=== PATIENT | male | born 1990 | race Caucasian/White ===

== ENCOUNTER 2021-04-02 13:15 | Inpatient (IN) | payer SELFPAY ==
[~2021-04-02] VITALS: Ht 175.3 cm; Wt 96.1 kg
[2021-04-02] MEDS ORDERED: NS IV 1000 ML 1,000 ML IV STA (13:33)
[2021-04-02] MEDS ORDERED: LORazepam INJ 2 MG/ML (ATIVAN) VIAL IVP STA (13:33)
[2021-04-02 13:44] LABS: HEMATOCRIT 44 % (40-54); HEMOGLOBIN 15.5 G/DL (13.3-17.7); MEAN CORPUSCULAR HEMOGLOBIN 36 PG (25-34); MEAN CORPUSCULAR HGB CONC 35 G/DL (32-36); MEAN CORPUSCULAR VOLUME 102 FL (80-99); PLATELET COUNT 131 10^3/uL (130-400); WHITE BLOOD COUNT 4.7 10^3/uL (4.3-11.0)
[2021-04-02 13:45] LABS: BASOPHILS % (AUTO) 0 % (0-10); EOSINOPHILS % (AUTO) 0 % (0-10); LYMPHOCYTES # (AUTO) 1.1 X 10^3 (1.0-4.0); LYMPHOCYTES % (AUTO) 23 % (12-44); MEAN PLATELET VOLUME 10.4 FL (7.4-10.4); MONOCYTES # (AUTO) 0.8 X 10^3 (0.0-1.0); MONOCYTES % (AUTO) 17 % (0-12); NEUTROPHILS # (AUTO) 2.8 X 10^3 (1.8-7.8); NEUTROPHILS % (AUTO) 60 % (42-75)
--- NOTE | 2021-04-02 13:55 | ED General ---
General Chief Complaint: General Problems/Pain Stated Complaint: SEIZURE; COVID+ Nursing Triage Note: Patient reports he is COVID positive, states he went to walk-in care today and received a steroid shot. He states they were driving away from the walk-in care facility when he began have extreme muscle cramps in his legs. He states he had facial swelling, difficulty swallowing, and muscle cramps in his arms bilaterally as well. He states he was given an epi-pen at walk-in [facility], then came to the ED by EMS. EMS reports giving the patient 25 mg of IV benadryl. Patient is alert and talking on arrival to the ED, still reporting some muscle cramping. Source of Information: Patient, EMS History of Present Illness Date Seen by Provider: Apr 02, 2021 Time Seen by Provider: 13:15 Initial Comments 30-year-old male brought in by EMS after having a Solu-Medrol shot at the walk- in clinic. He has not been feeling well for the last few days and had gallbladder to be evaluated. He had positive Covid test today at the clinic. The give him a steroid shot to help with his positive Covid diagnosis. He started having muscle cramps and felt like his face and throat were swelling as well as difficulty swallowing after the shot and came back to the walk-in clinic. They gave him an epinephrine injection and 12.1. The EMS gave him additional dose of Benadryl on top of the epinephrine that he had already been given. This was due to continued shaking and contractures in his arms especially as he was getting blood pressure taken. He had denied any vomiting, diarrhea, chest pain, abdominal pain, shortness of breath. He has had some mild cough. He states that he had been a heavy drinker until recently and since Darby Stewart had told him to cut back on the drinking due to fatty liver he has not drink as much. He was still not feeling quite back to normal after all the treatments so EMS transported him to ED for evaluation. Associated Systoms: No Chest Pain; Cough; No Diaphoresis, No Fever/Chills; Malaise; No Nausea/Vomiting, No Rash, No Shortness of Air, No Syncope, No Weakness Allergies and Home Medications Allergies Coded Allergies: No Known Drug Allergies (Unverified , 04/02/21) Patient Home Medication List Home Medication List Reviewed: Yes Review of Systems Review of Systems Constitutional: No fever; malaise, weakness EENTM: nose congestion Respiratory: cough; No short of breath; other (felt like throat was closing off after given Solumedrol injection) Cardiovascular: No chest pain Gastrointestinal: no symptoms reported Genitourinary: no symptoms reported Musculoskeletal: muscle stiffness, muscle cramps Skin: No rash Psychiatric/Neurological: Weakness (generalized) Past Lkpjsmy-Vncxnt-Emralr Hx Patient Social History Tobacco type used: Cigarettes Smoking Status: Current Everyday Smoker Substance use?: No Alcohol Use?: Yes Alcohol Frequency: Couple times a week Pt feels they are or have been: No Past Medical History Surgeries: No Respiratory: No Cardiac: No Neurological: No Genitourinary: No Gastrointestinal: Yes (Fatty Liver and elevated LFTs) Musculoskeletal: No Endocrine: No Cancer: No Psychosocial: No Integumentary: No Physical Exam Vital Signs Vital Signs - First Documented 04/02/21 13:16 Temp 36.4 Pulse 74 Resp 22 B/P (MAP) 155/85 (108) Pulse Ox 99 O2 Delivery Room Air Capillary Refill : Less Than 3 Seconds Height, Weight, BMI Height: '" Weight: lbs. oz. kg; 31.00 BMI Method: General Appearance: No Apparent Distress, WD/WN HEENT: PERRL/EOMI, Pharynx Normal Neck: Full Range of Motion, Normal Inspection, Non Tender, Supple Respiratory: Chest Non Tender, Lungs Clear, Normal Breath Sounds, No Accessory Muscle Use, No Respiratory Distress Cardiovascular: Regular Rate, Rhythm, Normal Peripheral Pulses Gastrointestinal: Normal Bowel Sounds, No Pulsatile Mass, Non Tender, Soft Rectal: Deferred Extremity: Normal Capillary Refill, Normal Inspection, Normal Range of Motion, No Calf Tenderness, No Pedal Edema Neurologic/Psychiatric: Alert, Oriented x3, No Motor/Sensory Deficits, Normal Mood/Affect, marketing strategy analyst II-XII Norm as Tested Skin: Normal Color, Warm/Dry Progress/Results/Core Measures Suspected Sepsis SIRS Temperature: Pulse: 74 Respiratory Rate: 22 Laboratory Tests 04/02/21 13:35: White Blood Count 4.7 Blood Pressure 155 /85 Mean: 108 Laboratory Tests 04/02/21 13:35: Creatinine 0.66, Platelet Count 131, Total Bilirubin 1.2H Results/Orders Lab Results Laboratory Tests Test 04/02/21 13:35 04/02/21 15:25 Range/Units White Blood Count 4.7 4.3-11.0 10^3/uL Red Blood Count 4.28 L 4.35-5.85 10^6/uL Hemoglobin 15.5 13.3-17.7 G/DL Hematocrit 44 40-54 % Mean Corpuscular Volume 102 H 80-99 FL Mean Corpuscular Hemoglobin 36 H 25-34 PG Mean Corpuscular Hemoglobin Concent 35 32-36 G/DL Red Cell Distribution Width 13.6 10.0-14.5 % Platelet Count 131 130-400 10^3/uL Mean Platelet Volume 10.4 7.4-10.4 FL Immature Granulocyte % (Auto) 0 % Neutrophils (%) (Auto) 60 42-75 % Lymphocytes (%) (Auto) 23 12-44 % Monocytes (%) (Auto) 17 H 0-12 % Eosinophils (%) (Auto) 0 0-10 % Basophils (%) (Auto) 0 0-10 % Neutrophils # (Auto) 2.8 1.8-7.8 X 10^3 Lymphocytes # (Auto) 1.1 1.0-4.0 X 10^3 Monocytes # (Auto) 0.8 0.0-1.0 X 10^3 Eosinophils # (Auto) 0.0 0.0-0.3 10^3/uL Basophils # (Auto) 0.0 0.0-0.1 10^3/uL Immature Granulocyte # (Auto) 0.0 0.0-0.1 10^3/uL Sodium Level 136 135-145 MMOL/L Potassium Level 2.9 L 3.6-5.0 MMOL/L Chloride Level 93 L 98-107 MMOL/L Carbon Dioxide Level 22 21-32 MMOL/L Anion Gap 21 H 5-14 MMOL/L Blood Urea Nitrogen 5 L 7-18 MG/DL Creatinine 0.66 0.60-1.30 MG/DL Estimat Glomerular Filtration Rate > 60 BUN/Creatinine Ratio 8 Glucose Level 92 70-105 MG/DL Calcium Level 7.3 L 8.5-10.1 MG/DL Corrected Calcium 7.5 L 8.5-10.1 MG/DL Magnesium Level 1.0 *L 1.6-2.4 MG/DL Total Bilirubin 1.2 H 0.1-1.0 MG/DL Aspartate Amino Transf (AST/SGOT) 156 H 5-34 U/L Alanine Aminotransferase (ALT/SGPT) 291 H 0-55 U/L Alkaline Phosphatase 170 H 40-136 U/L Total Protein 6.5 6.4-8.2 GM/DL Albumin 3.7 3.2-4.5 GM/DL Serum Alcohol < 10 <10 MG/DL Urine Color YELLOW Urine Clarity CLEAR Urine pH 6.5 5-9 Urine Specific [place] 1.010 L 1.016-1.022 Urine Protein NEGATIVE NEGATIVE Urine Glucose (UA) NEGATIVE NEGATIVE Urine Ketones 1+ H NEGATIVE Urine Nitrite NEGATIVE NEGATIVE Urine Bilirubin NEGATIVE NEGATIVE Urine Urobilinogen 0.2 < = 1.0 MG/DL Urine Leukocyte Esterase NEGATIVE NEGATIVE Urine RBC (Auto) 1+ H NEGATIVE Urine RBC 2-5 H /HPF Urine WBC RARE /HPF Urine Squamous Epithelial Cells RARE /HPF Urine Crystals NONE /LPF Urine Bacteria NEGATIVE /HPF Urine Casts NONE /LPF Urine Mucus SMALL H /LPF Urine Culture Indicated NO Urine Opiates Screen NEGATIVE NEGATIVE Urine Oxycodone Screen NEGATIVE NEGATIVE Urine Methadone Screen NEGATIVE NEGATIVE Urine Propoxyphene Screen NEGATIVE NEGATIVE Urine Barbiturates Screen NEGATIVE NEGATIVE Ur Tricyclic Antidepressants Screen NEGATIVE NEGATIVE Urine Phencyclidine Screen NEGATIVE NEGATIVE Urine Amphetamines Screen NEGATIVE NEGATIVE Urine Methamphetamines Screen NEGATIVE NEGATIVE Urine Benzodiazepines Screen NEGATIVE NEGATIVE Urine Cocaine Screen NEGATIVE NEGATIVE Urine Cannabinoids Screen NEGATIVE NEGATIVE My Orders Orders - ARIN TAN MD Comprehensive Metabolic Panel (04/02/21 13:33) Ua Culture If Indicated (04/02/21 13:33) Ed Iv/Invasive Line Start (04/02/21 13:33) Cbc With Automated Diff (04/02/21 13:33) Magnesium (04/02/21 13:33) Drug Screen Stat (Urine) (04/02/21 13:33) Alcohol (04/02/21 13:33) Lorazepam Injection (Ativan Injection) (04/02/21 13:33) Ns Iv 1000 Ml (Sodium Chloride 0.9%) (04/02/21 13:33) Potassium Chloride (Tablet) (K Dur Table (04/02/21 14:04) Magnesium 1 Gm/100 Ml Ivpb (Magnesium Plata (04/02/21 14:04) Ekg Tracing (04/02/21 14:04) Calcium Gluconate 10% Inj (Calcium Glu (04/02/21 14:53) Vital Signs/I&O 04/02/21 13:16 Temp 36.4 Pulse 74 Resp 22 B/P (MAP) 155/85 (108) Pulse Ox 99 O2 Delivery Room Air Capillary Refill : Less Than 3 Seconds Blood Pressure Mean: 108 Progress Note #1: Progress Note check labs and electrolytes for his spasms and reaction to steroid. From description given to EMS he was having facial and throat swelling but he has improved after Epi-pen by Walk-in Clinic and Benadryl by EMS. Progress Note #2: Progress Note Labs show stable CBC without acute significant normality. His chemistry does demonstrate low potassium, magnesium, calcium, and elevated LFTs. He is complaining of continued spasms in his hand especially when the blood pressure cuff is inflating to take his blood pressure. He has no further symptoms for allergic reaction but still having spasms and issues with electrolytes. He has been told he had a fatty liver and elevated LFTs before so this may be cause for his LFTs but no old lab for comparison. ECG added on and shows sinus rhythm with QT prolongation of 431 ms and QTc of 507 ms. d/w Dr. Mar and will admit for supplementation of his electrolytes since they are low enough that he is having spasms and mild prolongation of QT interval. Giving 1 gm of Magnesium here and order calcium gluconate 1 gm. IVF for hydration and repeat Mag and CaGluconate on arrival to [facility]. ECG Initial ECG Impression Date: Apr 02, 2021 Initial ECG Impression Time: 14:46 Initial ECG Rate: 83 Initial ECG Rhythm: Normal Sinus Initial ECG Comparisson: No Previous ECG Available Comment Normal sinus rhythm with a heart rate of 83 bpm. The MO interval [address] elevation. Prolonged QT interval of 431 ms and a QTc interval 507 ms. No prior tracing available for comparison. Departure Communication (Admissions) Time/Spoke to Admitting Phy: 14:32 d/w Dr. Mar for [facility] as pt was following with HUEY Stewart. He has muscle spasms with blood pressure cuff an d low calcium at 7.3 that corrects to 7.5. Magnesium is low at 1. Potassium is low at 2.9. He is Covid 19 Positive and had a reaction to solu-medrol injection but is doing well after that. Will admit for supplementation of his electrolytes since he is having QT prolongation along with the muscle spasms. Negative Chvostek's but Positive Trousseau's sign for his low calcium. Impression Primary Impression: Hypocalcemia Additional Impressions: Hypomagnesemia Hypokalemia Muscle spasm Allergic reaction caused by a drug Qualified Codes: T78.40XA - Allergy, unspecified, initial encounter COVID-19 virus infection Elevated LFTs Disposition: 30 STILL A PATIENT Condition: Stable Admissions Decision to Admit Reason: Admit from ER (General) Decision to Admit/Date: Apr 02, 2021 Time/Decision to Admit Time: 14:32 ARIN TAN MD Apr 02, 2021 13:55
[2021-04-02 13:57] LABS: BUN/CREATININE RATIO 8; CALCIUM 7.3 MG/DL (8.5-10.1); CARBON DIOXIDE 22 MMOL/L (21-32); CHLORIDE 93 MMOL/L (98-107); CREATININE SERUM 0.66 MG/DL (0.60-1.30); GFR ESTIMATED > 60; GLUCOSE 92 MG/DL (70-105); POTASSIUM 2.9 MMOL/L (3.6-5.0); SODIUM 136 MMOL/L (135-145)
[2021-04-02 13:59] LABS: ALANINE AMINOTRANSFERASE 291 U/L (0-55); ALBUMIN 3.7 GM/DL (3.2-4.5); ALKALINE PHOSPHATASE 170 U/L (40-136); BILIRUBIN,TOTAL 1.2 MG/DL (0.1-1.0); TOTAL PROTEIN 6.5 GM/DL (6.4-8.2)
[2021-04-02] MEDS ORDERED: KCL 20 MEQ TAB (K-DUR) PO STA (14:04)
[2021-04-02] MEDS ORDERED: MAGNESIUM 1 GM/100 ML IVPB 100 ML IV STA (14:04)
[2021-04-02] MEDS ORDERED: CALCIUM GLUCONATE 10% INJ 4.65 MEQ in NS (IVPB) 50 ML IV STA (14:53)
[2021-04-02 15:32] LABS: CLARITY,URINE CLEAR; COLOR,URINE YELLOW
[2021-04-02 15:35] LABS: BILIRUBIN,URINE NEGATIVE (NEGATIVE); GLUCOSE, URINE (UA) NEGATIVE (NEGATIVE); KETONES,URINE 1+ (NEGATIVE); LEUKOCYTE ESTERASE ,URINE NEGATIVE (NEGATIVE); NITRITE,URINE NEGATIVE (NEGATIVE); PH,URINE 6.5 (5-9); PROTEIN,URINE NEGATIVE (NEGATIVE)
[2021-04-02 15:41] LABS: AMPHETAMINE SCREEN, URINE NEGATIVE (NEGATIVE); BACTERIA,URINE NEGATIVE /HPF; BARBITURATE SCREEN URINE NEGATIVE (NEGATIVE); BENZODIAZEPINES SCREEN URINE NEGATIVE (NEGATIVE); CANNABINOID SCREEN, URINE NEGATIVE (NEGATIVE); COCAINE SCREEN URINE NEGATIVE (NEGATIVE); METHADONE STAT NEGATIVE (NEGATIVE); METHAMPHETAMINE SCREEN URINE S NEGATIVE (NEGATIVE); OPIATE SCREEN URINE NEGATIVE (NEGATIVE); OXYCODONE STAT NEGATIVE (NEGATIVE); PROPOXYPHENE STAT NEGATIVE (NEGATIVE); SQUAMOUS EPITHELIAL CELL,UR RARE /HPF; TRICYCLIC ANTIDEPRESSANTS SCRE NEGATIVE (NEGATIVE); WBC,URINE RARE /HPF
[2021-04-02] MEDS ORDERED: CALCIUM GLUC. 10% 4.65 MEQ/10 ML VIAL ONE (16:56)
[2021-04-02] MEDS ORDERED: NS IV 1000 ML 1,000 ML ONE (16:56)
[2021-04-02] MEDS ORDERED: MAGNESIUM 1 GM/100 ML IVPB 100 ML IV ONE ×4 (16:57→22:00)
[2021-04-02] MEDS: NS IV 1000 ML 1,000 ML IV SCH (17:12)
[2021-04-02] MEDS ORDERED: KCL 20 MEQ TAB (K-DUR) PO ONE (17:30)
[2021-04-02 17:38] VITALS: BP 111/62
[2021-04-02] MEDS ORDERED: RT-ALBUTEROL INHALER HFA (VENTOLIN HFA) 18 GM IH PRN (17:45)
--- NOTE | 2021-04-02 20:46 | History & Physical ---
HPI History of Present Illness: 30 yo M that presented with electrolyte disturbances after he started not feeling well on Friday. States that he went in to the walkin clinic and was tested for COVID and it was positive today. He received a steroid injection and had a reaction to the steroid injection. He received 2 doses of epi prior to arriving to ER. States that he had a coworker that had not been feeling well and was started on a z-pack last week. Patient has been feeling fatigued but otherwise feeling ok. Started coughing on friday but has not had any troubles breathing. Patient states that he use to be an every day drinker but he has been cutting down. Denies ever having to be in the hospital or having withdraw symptoms. Source: patient Exam Limitations: no limitations Date seen by provider: Apr 02, 2021 Time Seen by Provider: 18:05 Attending Physician Jagjit Mar MD PCP No,Local Physician Consult Date of Admission Apr 02, 2021 at 16:48 Home Medications Home Medications Reviewed patient Home Medication Reconciliation performed by pharmacy medication reconciliations cryptologic technician technical and/or nursing. Patients Allergies have been reviewed. Allergies Coded Allergies: methylprednisolone (Verified Allergy, Unknown, 04/02/21) QCU-Dtkiyb-Vjhnup Hx Patient Social History Living Status: Lives at home with mother Smoking Status: Former Smoker Alcohol Use?: Yes Tobacco type used: Cigarettes Have you traveled recently?: No Past Medical History EtOH use Family Medical History Significant Family History: No Pertinent Family Hx Review of Systems ([facility]) Constitutional: malaise, weakness EENTM: nose congestion; No mouth pain, No nose pain, No throat pain Respiratory: cough; No dyspnea on exertion, No short of breath Cardiovascular: no symptoms reported; No chest pain, No edema, No palpitations Gastrointestinal: no symptoms reported; No abdominal pain, No constipation, No diarrhea, No loss of appetite, No nausea, No vomiting Genitourinary: no symptoms reported; No dysuria, No frequency, No hematuria Musculoskeletal: muscle pain (left hand pain) Skin: no symptoms reported; No lesions, No rash Psychiatric/Neurological: Numbness (left hand) Reviewed Test Results Reviewed Test Results Lab Laboratory Tests Test 04/02/21 13:35 04/02/21 15:25 04/02/21 19:47 Range/Units White Blood Count 4.7 4.3-11.0 10^3/uL Red Blood Count 4.28 L 4.35-5.85 10^6/uL Hemoglobin 15.5 13.3-17.7 G/DL Hematocrit 44 40-54 % Mean Corpuscular Volume 102 H 80-99 FL Mean Corpuscular Hemoglobin 36 H 25-34 PG Mean Corpuscular Hemoglobin Concent 35 32-36 G/DL Red Cell Distribution Width 13.6 10.0-14.5 % Platelet Count 131 130-400 10^3/uL Mean Platelet Volume 10.4 7.4-10.4 FL Immature Granulocyte % (Auto) 0 % Neutrophils (%) (Auto) 60 42-75 % Lymphocytes (%) (Auto) 23 12-44 % Monocytes (%) (Auto) 17 H 0-12 % Eosinophils (%) (Auto) 0 0-10 % Basophils (%) (Auto) 0 0-10 % Neutrophils # (Auto) 2.8 1.8-7.8 X 10^3 Lymphocytes # (Auto) 1.1 1.0-4.0 X 10^3 Monocytes # (Auto) 0.8 0.0-1.0 X 10^3 Eosinophils # (Auto) 0.0 0.0-0.3 10^3/uL Basophils # (Auto) 0.0 0.0-0.1 10^3/uL Immature Granulocyte # (Auto) 0.0 0.0-0.1 10^3/uL Sodium Level 136 135-145 MMOL/L Potassium Level 2.9 L 3.6-5.0 MMOL/L Chloride Level 93 L 98-107 MMOL/L Carbon Dioxide Level 22 21-32 MMOL/L Anion Gap 21 H 5-14 MMOL/L Blood Urea Nitrogen 5 L 7-18 MG/DL Creatinine 0.66 0.60-1.30 MG/DL Estimat Glomerular Filtration Rate > 60 BUN/Creatinine Ratio 8 Glucose Level 92 70-105 MG/DL Calcium Level 7.3 L 8.5-10.1 MG/DL Corrected Calcium 7.5 L 8.5-10.1 MG/DL Magnesium Level 1.0 *L 1.6-2.4 MG/DL Total Bilirubin 1.2 H 0.1-1.0 MG/DL Aspartate Amino Transf (AST/SGOT) 156 H 5-34 U/L Alanine Aminotransferase (ALT/SGPT) 291 H 0-55 U/L Alkaline Phosphatase 170 H 40-136 U/L Total Protein 6.5 6.4-8.2 GM/DL Albumin 3.7 3.2-4.5 GM/DL Serum Alcohol < 10 <10 MG/DL Urine Color YELLOW Urine Clarity CLEAR Urine pH 6.5 5-9 Urine Specific [place] 1.010 L 1.016-1.022 Urine Protein NEGATIVE NEGATIVE Urine Glucose (UA) NEGATIVE NEGATIVE Urine Ketones 1+ H NEGATIVE Urine Nitrite NEGATIVE NEGATIVE Urine Bilirubin NEGATIVE NEGATIVE Urine Urobilinogen 0.2 < = 1.0 MG/DL Urine Leukocyte Esterase NEGATIVE NEGATIVE Urine RBC (Auto) 1+ H NEGATIVE Urine RBC 2-5 H /HPF Urine WBC RARE /HPF Urine Squamous Epithelial Cells RARE /HPF Urine Crystals NONE /LPF Urine Bacteria NEGATIVE /HPF Urine Casts NONE /LPF Urine Mucus SMALL H /LPF Urine Culture Indicated NO Urine Opiates Screen NEGATIVE NEGATIVE Urine Oxycodone Screen NEGATIVE NEGATIVE Urine Methadone Screen NEGATIVE NEGATIVE Urine Propoxyphene Screen NEGATIVE NEGATIVE Urine Barbiturates Screen NEGATIVE NEGATIVE Ur Tricyclic Antidepressants Screen NEGATIVE NEGATIVE Urine Phencyclidine Screen NEGATIVE NEGATIVE Urine Amphetamines Screen NEGATIVE NEGATIVE Urine Methamphetamines Screen NEGATIVE NEGATIVE Urine Benzodiazepines Screen NEGATIVE NEGATIVE Urine Cocaine Screen NEGATIVE NEGATIVE Urine Cannabinoids Screen NEGATIVE NEGATIVE Physical Exam-([facility]) Physical Exam Vital Signs VS - Last 72 Hours, by Label 04/02/21 04/02/21 04/02/21 04/02/21 13:16 16:00 17:00 17:25 Temp 36.4 Pulse 74 81 80 Resp 22 16 29 B/P (MAP) 155/85 (108) 111/62 157/94 (115) Pulse Ox 99 97 94 O2 Delivery Room Air Room Air Room Air Room Air 04/02/21 04/02/21 04/02/21 04/02/21 17:38 18:00 19:43 19:49 Temp 36.4 37.8 Pulse 81 86 80 Resp 11 12 B/P (MAP) 151/99 (116) 145/89 (107) Pulse Ox 97 96 97 O2 Delivery Room Air Room Air 04/02/21 19:59 O2 Delivery Room Air Capillary Refill : Less Than 3 Seconds General Appearance: WD/WN, no apparent distress HEENT: PERRL/EOMI Neck: non-tender, full range of motion, supple Respiratory: chest non-tender, lungs clear, normal breath sounds, no respiratory distress, no accessory muscle use Cardiovascular: normal peripheral pulses, regular rate, rhythm, no edema, no murmur Gastrointestinal: normal bowel sounds, non tender, soft Back: no CVA tenderness, no vertebral tenderness Extremities: normal range of motion, non-tender, normal inspection, no pedal edema, no calf tenderness, normal capillary refill Neurologic/Psychiatric: media consultant outside sales II-XII nml as tested, alert, normal mood/affect, oriented x 3 Skin: normal color, warm/dry Lymphatic: no adenopathy Assessment/Plan Assessment/Plan Admission Status: Inpatient Order (span 2 midnights) Reason for Inpatient Admission: multiple electrolyte disturbances that require regular monitoring (1) Hypokalemia Status: Acute Assessment & Plan: - Replacing PO per protocol, repeat pending, ECG w/o abnormal T waves (2) Hypocalcemia Status: Acute Assessment & Plan: - Replaced in ER, repeat pending (3) Hypomagnesemia Status: Acute Assessment & Plan: - Replaced x 2 grams, repeat level pending (4) Alcohol abuse Status: Chronic Assessment & Plan: - CIWS, Folic acid and Thiamine (5) HTN (hypertension) Assessment & Plan: - Will continue to monitor, consider starting lisinopril if continues to be elevated (6) Allergic reaction caused by a drug Status: Acute Assessment & Plan: - Received Epi x 2 Qualifiers: Qualified Codes: T78.40XA - Allergy, unspecified, initial encounter (7) COVID-19 virus infection Status: Acute Assessment & Plan: - Mild symptoms, continue isolation (8) Elevated LFTs Status: Acute Assessment & Plan: - Abdominal US, patient states that he was suppose to have US for gallstones JAGJIT MAR MD Apr 02, 2021 20:45
[2021-04-02 21:29] LABS: ALANINE AMINOTRANSFERASE 307 U/L (0-55); ALBUMIN 3.9 GM/DL (3.2-4.5); ALKALINE PHOSPHATASE 143 U/L (40-136); BILIRUBIN,TOTAL 1.1 MG/DL (0.1-1.0); BUN/CREATININE RATIO 6; CALCIUM 8.2 MG/DL (8.5-10.1); CARBON DIOXIDE 24 MMOL/L (21-32); CHLORIDE 100 MMOL/L (98-107); CREATININE SERUM 0.78 MG/DL (0.60-1.30); GFR ESTIMATED > 60; GLUCOSE 141 MG/DL (70-105); MAGNESIUM 1.5 MG/DL (1.6-2.4); SODIUM 141 MMOL/L (135-145)
[2021-04-02] MEDS ORDERED: CALCIUM GLUCONATE 1 GM/NS 50 ML IV ONE ×2 (21:30)
[2021-04-02 21:43] LABS: POTASSIUM 2.3 MMOL/L (3.6-5.0)
[2021-04-02] MEDS ORDERED: POTASSIUM CL 10MEQ/50ML IVPB 200 ML IV ONE (21:52)
[2021-04-02] MEDS ORDERED: ACETAMINOPHEN 500 MG TAB (TYLENOL) ONE (21:52)
[2021-04-02] MEDS: ACETAMINOPHEN 500 MG TAB (TYLENOL) PO PRN (22:01)
[2021-04-02] MEDS: POTASSIUM CL 10MEQ/50ML IVPB 50 ML IV SCH ×2 (22:10→23:32)
[2021-04-02] MEDS: ENOXAPARIN 40 MG/0.4 ML (LOVENOX) SYR SC SCH (22:11)
[2021-04-03] MEDS: POTASSIUM CL 10MEQ/50ML IVPB 50 ML IV SCH ×7 (00:48→11:11)
[2021-04-03] MEDS: NS IV 1000 ML 1,000 ML IV SCH ×3 (01:45→17:34)
[2021-04-03 04:10] LABS: ALBUMIN 3.7 GM/DL (3.2-4.5); BASOPHILS % (AUTO) 0 % (0-10); CHLORIDE 103 MMOL/L (98-107); EOSINOPHILS % (AUTO) 0 % (0-10); HEMATOCRIT 42 % (40-54); LYMPHOCYTES # (AUTO) 0.3 10^3/uL (1.0-4.0); LYMPHOCYTES % (AUTO) 14 % (12-44); MEAN CORPUSCULAR HEMOGLOBIN 36 pg (25-34); MEAN CORPUSCULAR HGB CONC 36 g/dL (32-36); MEAN CORPUSCULAR VOLUME 101 fL (80-99); MEAN PLATELET VOLUME 10.3 fL (9.0-12.2); MONOCYTES # (AUTO) 0.4 10^3/uL (0.0-1.0); MONOCYTES % (AUTO) 16 % (0-12); NEUTROPHILS # (AUTO) 1.5 10^3/uL (1.8-7.8); NEUTROPHILS % (AUTO) 70 % (42-75); PLATELET COUNT 137 10^3/uL (130-400); POTASSIUM 2.9 MMOL/L (3.6-5.0); SODIUM 141 MMOL/L (135-145); WHITE BLOOD COUNT 2.2 10^3/uL (4.3-11.0)
[2021-04-03 04:12] LABS: CALCIUM 7.6 MG/DL (8.5-10.1)
[2021-04-03 04:13] LABS: GLUCOSE 122 MG/DL (70-105); TOTAL PROTEIN 6.5 GM/DL (6.4-8.2)
[2021-04-03 04:14] LABS: CARBON DIOXIDE 24 MMOL/L (21-32)
[2021-04-03 04:15] LABS: BILIRUBIN,TOTAL 1.1 MG/DL (0.1-1.0)
[2021-04-03 04:16] LABS: ALKALINE PHOSPHATASE 148 U/L (40-136)
[2021-04-03 04:17] LABS: CREATININE SERUM 0.73 MG/DL (0.60-1.30); GFR ESTIMATED > 60
[2021-04-03 04:18] LABS: BUN/CREATININE RATIO 8
[2021-04-03 04:19] LABS: ALANINE AMINOTRANSFERASE 263 U/L (0-55); MAGNESIUM 1.8 MG/DL (1.6-2.4)
[2021-04-03] MEDS: MAGNESIUM 1 GM/100 ML IVPB 100 ML IV SCH (04:26)
[2021-04-03] MEDS: KCL 20 MEQ TAB (K-DUR) PO SCH (04:26)
[2021-04-03] MEDS: MULTIVIT W/MINERALS TAB (THERAGRAN M) PO SCH (06:13)
[2021-04-03] MEDS: THIAMINE 100 MG (VITAMIN B-1) TAB PO SCH (06:13)
[2021-04-03] MEDS: FOLIC ACID 1 MG TAB PO SCH (07:45)
[2021-04-03] MEDS ORDERED: KCL 20 MEQ TAB (K-DUR) PO ONE ×2 (09:15→17:00)
[2021-04-03] MEDS ORDERED: KCL 8 MEQ (MICRO K) TABLET PO ONE (09:15)
--- NOTE | 2021-04-03 10:47 | Diagnostic Imaging Report ---
PROCEDURE: US Abdomen, limited. TECHNIQUE: Multiple realtime grayscale images were obtained over the abdomen in various projections. INDICATION: Elevated LFTs. COMPARISON: None. FINDINGS: Left lobe of the liver is suboptimally visualized due to patient body habitus and obscuration by the ribs. Visualized portions of the liver, however, are otherwise within normal limits. Hepatic echogenicity is normal. No focal masses are seen. There is no sonographic evidence of intra- or extra-hepatic biliary ductal dilatation. Common bile duct is within normal limits at 3 mm. There is no evidence of cholelithiasis, gallbladder wall thickening, or pericholecystic fluid. The pancreas is not well visualized due to overlying bowel gas. There is no ascites. The right kidney measures approximately 11.6 cm in length and has a normal appearance. The visualized portions of the IVC and aorta are normal. IMPRESSION: No cholelithiasis or sonographic evidence of acute cholecystitis. Negative liver/gallbladder sonogram. Dictated by: Dictated on workstation # [id number]
[2021-04-03] MEDS: ACETAMINOPHEN 500 MG TAB (TYLENOL) PO PRN ×2 (11:14→21:00)
[2021-04-03] MEDS ORDERED: CYAN500T8 PO (11:21)
[2021-04-03] MEDS ORDERED: ACET-2267 PO (11:21)
[2021-04-03] MEDS ORDERED: DIPH25CA79 PO (11:21)
[2021-04-03] MEDS ORDERED: THIA50TA10 PO (11:24)
--- NOTE | 2021-04-03 11:41 | Progress Note ---
Subjective Subjective/Events-last exam Patient states that he is feeling some better. Denies any fevers or chills. No pain. Tolerating PO diet. Review of Systems General: No Fatigue; Malaise HEENT: No Sore Throat Pulmonary: No Dyspnea; Cough Cardiovascular: No: Chest Pain, Palpitations Gastrointestinal: No: Nausea, Vomiting, Abdominal Pain, Diarrhea, Constipation Genitourinary: No Dysuria, No Frequency Objective Exam Last Set of Vital Signs Vital Signs Date Time Temp Pulse Resp B/P (MAP) Pulse Ox O2 Delivery O2 Flow Rate FiO2 04/03/21 11:11 36.2 04/03/21 11:00 60 14 98 Room Air Capillary Refill : Less Than 3 Seconds I&O Intake and Output 04/03/21 00:00 Intake Total 1910 ml Balance 1910 ml Intake Oral 750 ml IV Total 1160 ml # Voids 4 Daily Weight Change No General: Alert, Oriented X3, Cooperative, No Acute Distress HEENT: Mucous Memb Moist/[place] Lungs: Clear to Auscultation, Normal Air Movement, Other (Nml work of breathing, no crackles) Heart: Regular Rate, No Murmurs Abdomen: Normal Bowel Sounds, Soft, No Tenderness, No Masses Extremities: No Edema, No Tenderness/Swelling Skin: No Rashes Neuro: Normal Speech, Strength at 5/5 X4 Ext, Sensation Intact Psych/Mental Status: Mental Status NL, Mood NL Results/Procedures Lab Laboratory Tests 04/02/21 13:35: White Blood Count 4.7, Red Blood Count 4.28L, Hemoglobin 15.5, Hematocrit 44, Mean Corpuscular Volume 102H, Mean Corpuscular Hemoglobin 36H, Mean Corpuscular Hemoglobin Concent 35, Red Cell Distribution Width 13.6, Platelet Count 131, Mean Platelet Volume 10.4, Immature Granulocyte % (Auto) 0, Neutrophils (%) (Auto) 60, Lymphocytes (%) (Auto) 23, Monocytes (%) (Auto) 17H, Eosinophils (%) (Auto) 0, Basophils (%) (Auto) 0, Neutrophils # (Auto) 2.8, Lymphocytes # (Auto) 1.1, Monocytes # (Auto) 0.8, Eosinophils # (Auto) 0.0, Basophils # (Auto) 0.0, Immature Granulocyte # (Auto) 0.0, Sodium Level 136, Potassium Level 2.9L, Chloride Level 93L, Carbon Dioxide Level 22, Anion Gap 21H, Blood Urea Nitrogen 5L, Creatinine 0.66, Estimat Glomerular Filtration Rate > 60, BUN/Creatinine Ratio 8, Glucose Level 92, Calcium Level 7.3L, Corrected Calcium 7.5L, Magnesium Level 1.0*L, Total Bilirubin 1.2H, Aspartate Amino Transf (AST/SGOT) 156H, Alanine Aminotransferase (ALT/SGPT) 291H, Alkaline Phosphatase 170H, Total Protein 6.5, Albumin 3.7, Serum Alcohol < 10 04/02/21 15:25: Urine Color YELLOW, Urine Clarity CLEAR, Urine pH 6.5, Urine Specific [place] 1.010L, Urine Protein NEGATIVE, Urine Glucose (UA) NEGATIVE, Urine Ketones 1+H, Urine Nitrite NEGATIVE, Urine Bilirubin NEGATIVE, Urine Urobilinogen 0.2, Urine Leukocyte Esterase NEGATIVE, Urine RBC (Auto) 1+H, Urine RBC 2-5H, Urine WBC RARE, Urine Squamous Epithelial Cells RARE, Urine Crystals NONE, Urine Bacteria NEGATIVE, Urine Casts NONE, Urine Mucus SMALLH, Urine Culture Indicated NO, Urine Opiates Screen NEGATIVE, Urine Oxycodone Screen NEGATIVE, Urine Methadone Screen NEGATIVE, Urine Propoxyphene Screen NEGATIVE, Urine Barbiturates Screen NEGATIVE, Ur Tricyclic Antidepressants Screen NEGATIVE, Urine Phencyclidine Screen NEGATIVE, Urine Amphetamines Screen NEGATIVE, Urine Methamphetamines Screen NEGATIVE, Urine Benzodiazepines Screen NEGATIVE, Urine Cocaine Screen NEGATIVE, Urine Cannabinoids Screen NEGATIVE 04/02/21 19:47: Sodium Level 141, Potassium Level 2.3*L, Chloride Level 100, Carbon Dioxide Level 24, Anion Gap 17H, Blood Urea Nitrogen 5L, Creatinine 0.78, Estimat Glomerular Filtration Rate > 60, BUN/Creatinine Ratio 6, Glucose Level 141H, Calcium Level 8.2L, Corrected Calcium 8.3L, Magnesium Level 1.5L, Total Bilirubin 1.1H, Aspartate Amino Transf (AST/SGOT) 139H, Alanine Aminotransferase (ALT/SGPT) 307H, Alkaline Phosphatase 143H, Total Protein 7.0, Albumin 3.9 04/03/21 03:31: White Blood Count 2.2L, Red Blood Count 4.20L, Hemoglobin 15.0, Hematocrit 42, Mean Corpuscular Volume 101H, Mean Corpuscular Hemoglobin 36H, Mean Corpuscular Hemoglobin Concent 36, Red Cell Distribution Width 13.3, Platelet Count 137, Mean Platelet Volume 10.3, Immature Granulocyte % (Auto) 1, Neutrophils (%) (Auto) 70, Lymphocytes (%) (Auto) 14, Monocytes (%) (Auto) 16H, Eosinophils (%) (Auto) 0, Basophils (%) (Auto) 0, Neutrophils # (Auto) 1.5L, Lymphocytes # (Auto) 0.3L, Monocytes # (Auto) 0.4, Eosinophils # (Auto) 0.0, Basophils # (Auto) 0.0, Immature Granulocyte # (Auto) 0.0, Sodium Level 141, Potassium Level 2.9L, Chloride Level 103, Carbon Dioxide Level 24, Anion Gap 14, Blood Urea Nitrogen 6L, Creatinine 0.73, Estimat Glomerular Filtration Rate > 60, BUN/Creatinine Ratio 8, Glucose Level 122H, Calcium Level 7.6L, Corrected Calcium 7.8L, Magnesium Level 1.8, Total Bilirubin 1.1H, Aspartate Amino Transf (AST/SGOT) 116H, Alanine Aminotransferase (ALT/SGPT) 263H, Alkaline Phosphatase 148H, Total Protein 6.5, Albumin 3.7, Phosphorus Level 2.0L Assessment/Plan Assessment/Plan (1) Hypokalemia Status: Acute Assessment & Plan: - Replacing PO per protocol, repeat pending, ECG w/o abnormal T waves 04/03: Improving Received 80 mEq IV since last night. Will finish the last bag this AM, BMP pending after bag completed, Add 40 Meq PO now (2) Hypocalcemia Status: Acute Assessment & Plan: - Replaced in ER, repeat pending (3) Hypomagnesemia Status: Resolved Assessment & Plan: - Replaced x 2 grams, repeat level pending (4) Alcohol abuse Status: Chronic Assessment & Plan: - CIWS, Folic acid and Thiamine (5) HTN (hypertension) Assessment & Plan: - Will continue to monitor, consider starting lisinopril if continues to be elevated (6) Allergic reaction caused by a drug Status: Acute Assessment & Plan: - Received Epi x 2 Qualifiers: Qualified Codes: T78.40XA - Allergy, unspecified, initial encounter (7) COVID-19 virus infection Status: Acute Assessment & Plan: - Mild symptoms, continue isolation (8) Elevated LFTs Status: Acute Assessment & Plan: - Abdominal US, patient states that he was suppose to have US for gallstones 04/03: US normal, Will get Acute hepatitis panel and HIV (9) Leukopenia Status: Acute Assessment & Plan: 04/03: Will continue to monitor, patient with covid, Hepatitis panel, HIV and Tick panel pending Qualifiers: Qualified Codes: D72.819 - Decreased white blood cell count, unspecified JAGJIT TROY MD Apr 03, 2021 11:41
[2021-04-03 16:06] LABS: CHLORIDE 106 MMOL/L (98-107); POTASSIUM 3.2 MMOL/L (3.6-5.0); SODIUM 143 MMOL/L (135-145)
[2021-04-03 16:07] LABS: CALCIUM 7.9 MG/DL (8.5-10.1); GLUCOSE 75 MG/DL (70-105)
[2021-04-03 16:09] LABS: CARBON DIOXIDE 23 MMOL/L (21-32)
[2021-04-03 16:11] LABS: CREATININE SERUM 0.72 MG/DL (0.60-1.30); GFR ESTIMATED > 60
[2021-04-03 16:12] LABS: BUN/CREATININE RATIO 8
[2021-04-03] MEDS: ENOXAPARIN 40 MG/0.4 ML (LOVENOX) SYR SC SCH (20:57)
[2021-04-03 21:12] LABS: HEPATITIS C ANTIBODY C Non-Reactive (Non-Reactive)
[2021-04-04] MEDS: NS IV 1000 ML 1,000 ML IV SCH (03:18)
[2021-04-04] MEDS: THIAMINE 100 MG (VITAMIN B-1) TAB PO SCH (05:59)
[2021-04-04] MEDS: MULTIVIT W/MINERALS TAB (THERAGRAN M) PO SCH (05:59)
[2021-04-04] MEDS: ACETAMINOPHEN 500 MG TAB (TYLENOL) PO PRN (06:15)
[2021-04-04] MEDS: MAGNESIUM 1 GM/100 ML IVPB 100 ML IV SCH (06:44)
[2021-04-04] MEDS: POTASSIUM CL 10MEQ/50ML IVPB 50 ML IV SCH (06:44)
[2021-04-04] MEDS: KCL 20 MEQ TAB (K-DUR) PO SCH (06:48)
[2021-04-04] MEDS ORDERED: KCL 20 MEQ TAB (K-DUR) PO ONE ×3 (08:00→10:15)
[2021-04-04 08:29] LABS: BASOPHILS % (AUTO) 0 % (0-10); EOSINOPHILS % (AUTO) 0 % (0-10); HEMATOCRIT 44 % (40-54); HEMOGLOBIN 16.1 g/dL (13.3-17.7); LYMPHOCYTES # (AUTO) 0.7 10^3/uL (1.0-4.0); LYMPHOCYTES % (AUTO) 14 % (12-44); MEAN CORPUSCULAR HEMOGLOBIN 37 pg (25-34); MEAN CORPUSCULAR HGB CONC 36 g/dL (32-36); MEAN CORPUSCULAR VOLUME 101 fL (80-99); MEAN PLATELET VOLUME 10.8 fL (9.0-12.2); MONOCYTES # (AUTO) 0.2 10^3/uL (0.0-1.0); MONOCYTES % (AUTO) 5 % (0-12); NEUTROPHILS # (AUTO) 3.9 10^3/uL (1.8-7.8); NEUTROPHILS % (AUTO) 81 % (42-75); PLATELET COUNT 170 10^3/uL (130-400); WHITE BLOOD COUNT 4.9 10^3/uL (4.3-11.0)
[2021-04-04 08:45] LABS: ALBUMIN 3.7 GM/DL (3.2-4.5); CHLORIDE 100 MMOL/L (98-107); POTASSIUM 2.6 MMOL/L (3.6-5.0); SODIUM 139 MMOL/L (135-145)
[2021-04-04] MEDS: FOLIC ACID 1 MG TAB PO SCH (08:45)
[2021-04-04 08:46] LABS: CALCIUM 8.1 MG/DL (8.5-10.1)
[2021-04-04 08:47] LABS: GLUCOSE 82 MG/DL (70-105); TOTAL PROTEIN 6.7 GM/DL (6.4-8.2)
[2021-04-04 08:48] LABS: CARBON DIOXIDE 26 MMOL/L (21-32)
[2021-04-04 08:49] LABS: BILIRUBIN,TOTAL 1.2 MG/DL (0.1-1.0)
[2021-04-04 08:51] LABS: ALKALINE PHOSPHATASE 148 U/L (40-136); CREATININE SERUM 0.73 MG/DL (0.60-1.30); GFR ESTIMATED > 60
[2021-04-04 08:52] LABS: BUN/CREATININE RATIO 7
[2021-04-04 08:54] LABS: ALANINE AMINOTRANSFERASE 202 U/L (0-55)
--- NOTE | 2021-04-04 10:03 | Discharge Summary ---
Diagnosis/Chief Complaint Date of Admission Apr 02, 2021 at 16:48 Date of Discharge Discharge Diagnosis Problems/Diagnosis: (1) Hypokalemia Assessment & Plan: - Replacing PO per protocol, repeat pending, ECG w/o abnormal T waves 04/03: Improving Received 80 mEq IV since last night. Will finish the last bag this AM, BMP pending after bag completed, Add 40 Meq PO now Status: Acute (2) Hypocalcemia Assessment & Plan: - Replaced in ER, repeat pending Status: Acute (3) Hypomagnesemia Assessment & Plan: - Replaced x 2 grams, repeat level pending Status: Resolved Resolution Date/Time: 04/03/21 @ 11:40 (4) Alcohol abuse Assessment & Plan: - CIWS, Folic acid and Thiamine Status: Chronic (5) HTN (hypertension) Assessment & Plan: - Will continue to monitor, consider starting lisinopril if continues to be elevated (6) Allergic reaction caused by a drug Assessment & Plan: - Received Epi x 2 Qualifiers: Qualified Codes: T78.40XA - Allergy, unspecified, initial encounter Status: Acute (7) COVID-19 virus infection Assessment & Plan: - Mild symptoms, continue isolation Status: Acute (8) Elevated LFTs Assessment & Plan: - Abdominal US, patient states that he was suppose to have US for gallstones 04/03: US normal, Will get Acute hepatitis panel and HIV Status: Acute (9) Leukopenia Assessment & Plan: 04/03: Will continue to monitor, patient with covid, Hepatitis panel, HIV and Tick panel pending Qualifiers: Qualified Codes: D72.819 - Decreased white blood cell count, unspecified Status: Acute Chief Complaint/HPI Chief Complaint/HPI 30 yo M that presented with electrolyte disturbances after he started not feeling well on Friday. States that he went in to the walkin clinic and was tested for COVID and it was positive today. He received a steroid injection and had a reaction to the steroid injection. He received 2 doses of epi prior to arriving to ER. States that he had a coworker that had not been feeling well and was started on a z-pack last week. Patient has been feeling fatigued but otherwise feeling ok. Started coughing on friday but has not had any troubles breathing. Patient states that he use to be an every day drinker but he has been cutting down. Denies ever having to be in the hospital or having withdraw symptoms. Discharge Summary-Simple/Stand Consultations Discharge Physical Examination Allergies: Coded Allergies: methylprednisolone (Verified Allergy, Unknown, 04/02/21) Vitals & I&Os Vital Sign - Last 12Hours Date Time Temp Pulse Resp B/P (MAP) Pulse Ox O2 Delivery O2 Flow Rate FiO2 04/04/21 08:00 38.2 101 20 143/90 (107) 99 Room Air Intake and Output 04/04/21 00:00 Intake Total 1760 ml Balance 1760 ml Hospital Course See final discharge diagnosis. Discharge Instructions to patient/family Please see electronic discharge instructions given to patient. Discharge Medications Reviewed and agree with Discharge Medication list on patient's Discharge Instruction sheet JAGJIT TROY MD Apr 04, 2021 10:03
[2021-04-04] MEDS ORDERED: POTA20TA8 PO (10:08)
--- NOTE | 2021-04-04 10:14 | Discharge Summary ---
Discharge [facility] Reconcile Patient Problems Problems Reviewed?: Yes Discharge Medications New, Converted or Re-Newed RX: Transmitted to Pharmacy New Medications: Potassium Chloride (Klor-Con M20) 20 Meq Tab.er.prt 40 MEQ PO DAILY@0600, #60 Continued Medications: Acetaminophen (Tylenol Extra Strength) 500 Mg Tablet 1000 MG PO Q8H PRN for PAIN-MILD (1-4), TAB Thiamine HCl (Vitamin B-1) 50 Mg Tablet 50 MG PO DAILY, TAB Discontinued Medications: Diphenhydramine HCl (Benadryl) 25 Mg Capsule 25-50 MG PO Q6H PRN for ALLERGY SYMPTOMS, CAP Patient Instructions Goal/Follow Up Appt: F/u with PCP after April 10 when you are off quarentine Patient Instructions: - You will need labs in 2 weeks to monitor your electrolytes, Make sure to stay well hydrated Activity & Diet Discharge Diet: No Restrictions Activity as Tolerated: Yes JAGJIT TROY MD Apr 04, 2021 10:14
[2021-04-04 11:30] VITALS: BP 143/90
== END 2021-04-04 11:35 | disposition home or self-care (01) | DRG 640 ==
LOC: EDUNIT# 13:15 → ER FS 13:16 → ICU 16:48 → 4TH 04-03 18:28
PROVIDERS: ADMIT Family Medicine; ATTEND Family Medicine
DX: E83.51 Hypocalcemia (principal); U07.1 COVID-19; E87.6 Hypokalemia; E83.42 Hypomagnesemia; M62.838 Other muscle spasm; K70.0 Alcoholic fatty liver; F10.10 Alcohol abuse, uncomplicated; F17.210 Nicotine dependence, cigarettes, uncomplicated; I10 Essential (primary) hypertension; Z73.0 Burn-out
CPT/HCPCS: 36415; 76705; 80048; 80053; 80074; 80306; 80320; 81000; 83735; 84100; 85025; 86666; 86668; 86703; 86757; 93005

== ENCOUNTER 2021-04-04 11:54 | Emergency (ER) | payer SELFPAY ==
[~2021-04-04] VITALS: Ht 172 cm; Wt 96.1 kg
[~2021-04-04 11:54] MED LIST: ACET-2267 PO; CYAN500T8 PO; DIPH25CA79 PO; POTA20TA8 PO; THIA50TA10 PO
[2021-04-04 12:05] VITALS: BP 136/89
--- NOTE | 2021-04-04 12:18 | ED Respiratory ---
General Chief Complaint: General Problems/Pain Stated Complaint: SOB Source: patient Exam Limitations: no limitations History of Present Illness Date Seen by Provider: Apr 04, 2021 Time Seen by Provider: 12:13 Initial Comments This is a 30-year-old male presents to the ER with complaints of feeling short of breath. He was discharged from the hospital approximately an hour ago after being treated for Covid symptoms. States he walked outside "into the heat" and got into his mother's car and smell all the smoke in her mother's car. States this made him feel like he could not breathe he started having short fast breaths and his fingers and face started to tingle. Returned to the emergency department for evaluation. After ambulating to exam room 10 states that he is feeling a little better. Currently denies Chest pain, nausea, vomiting, a bdominal pain. Allergies and Home Medications Allergies Coded Allergies: methylprednisolone (Verified Allergy, Unknown, 04/02/21) Home Medications Acetaminophen 500 Mg Tablet, 1,000 MG PO Q8H PRN for PAIN-MILD (1-4), (Reported) Potassium Chloride 20 Meq Tab.er.prt, 40 MEQ PO DAILY@0600 Prescribed by: JAGJIT MAR on 04/04/21 1008 Thiamine HCl 50 Mg Tablet, 50 MG PO DAILY, (Reported) Patient Home Medication List Home Medication List Reviewed: Yes Review of Systems Review of Systems Constitutional: No chills, No diaphoresis, No dizziness; weakness EENTM: no symptoms reported Respiratory: see HPI Cardiovascular: no symptoms reported Gastrointestinal: no symptoms reported Genitourinary: no symptoms reported Musculoskeletal: no symptoms reported Skin: no symptoms reported Psychiatric/Neurological: Anxiety Hematologic/Lymphatic: No Symptoms Reported Immunological/Allergic: no symptoms reported Past Yjiidwa-Vvrlha-Ryvedy Hx Past Medical History Surgeries: No Respiratory: No Cardiac: No Neurological: No Genitourinary: No Gastrointestinal: Yes (Fatty Liver and elevated LFTs) Musculoskeletal: No Endocrine: No Cancer: No Psychosocial: No Integumentary: No Family Medical History No Pertinent Family Hx Physical Exam Vital Signs - First Documented 04/04/21 12:05 Temp 36.3 Pulse 75 Resp 18 B/P (MAP) 136/89 (105) Pulse Ox 99 O2 Delivery Room Air Capillary Refill : Height: '" Weight: lbs. oz. kg; 31.85 BMI Method: General Appearance: WD/WN, no apparent distress Eyes: Bilateral Eye Normal Inspection, Bilateral Eye EOMI HEENT: PERRL/EOMI, pharynx normal Neck: full range of motion, normal inspection Respiratory: chest non-tender, no respiratory distress, no accessory muscle use, decreased breath sounds; No wheezing, No plerual rub Cardiovascular: normal peripheral pulses, regular rate, rhythm, no gallop, no murmur Gastrointestinal: normal bowel sounds, non tender, soft Extremities: normal range of motion, non-tender, normal inspection Neurologic/Psychiatric: no motor/sensory deficits, alert, normal mood/affect, oriented x 3 Skin: normal color, warm/dry Progress/Results/Core Measures Suspected Sepsis SIRS Temperature: Pulse: Respiratory Rate: Blood Pressure / Mean: Results/Orders My Orders Orders - BRANDIE GONZALES APRN Albuterol Inhaler (Ventolin Hfa) (04/04/21 14:00) Albuterol Inhaler (Ventolin Hfa) (04/04/21 12:33) Medications Given in ED Current Medications Medications Dose Ordered Sig/[place] Route Start Time Stop Time Status Last Admin Dose Admin Albuterol Sulfate RTQ4HR ONCE IH 04/04/21 14:00 04/04/21 14:01 04/04/21 12:37 18 GM Vital Signs/I&O 04/04/21 12:05 Temp 36.3 Pulse 75 Resp 18 B/P (MAP) 136/89 (105) Pulse Ox 99 O2 Delivery Room Air Capillary Refill : Progress Note : Progress Note Patient examined and in no acute distress. His oxygen is 99% on room air, heart rate 72. States that he is starting to feel a little bit better. Will observe in the emergency department for a while and monitor. Additionally orders placed for albuterol 4 puffs via spacer. Departure Impression Primary Impression: COVID-19 virus infection Additional Impression: Anxiety hyperventilation Disposition: 01 HOME, SELF-CARE Condition: Improved Departure-Patient Inst. Decision time for Depature: 12:49 Referrals: NO,LOCAL PHYSICIAN (PCP/Family) Primary Care Physician Patient Instructions: COVID-19 (DC), Hyperventilation Add. Discharge Instructions: Plan: 1. Follow discharge instructions as given per Dr. Mar. 2. Use albuterol inhaler with spacer every 4 hours as needed for shortness of breath. 3. Rest. Avoid heat, smoking, or other irritating factors. 4. Return to ER for any new, concerning, or worsening symptoms. All discharge instructions reviewed with patient and/or family. Voiced understanding. BRANDIE GONZALES FAMILY THERAPIST Apr 04, 2021 12:18
[2021-04-04] MEDS ORDERED: RT-ALBUTEROL INHALER HFA (VENTOLIN HFA) 18 GM IH ONE ×2 (12:33→14:00)
== END 2021-04-04 12:47 | disposition home or self-care (01) ==
LOC: EDUNIT# 11:54 → ER 11:55
DX: U07.1 COVID-19 (principal); F41.9 Anxiety disorder, unspecified; R06.4 Hyperventilation

== ENCOUNTER 2021-04-08 21:51 | Inpatient (IN) | payer SELFPAY ==
[~2021-04-08] VITALS: Ht 175.3 cm; Wt 93.0 kg
[2021-04-08] MEDS: NS IV 1000 ML 1,000 ML IV SCH ×2 (22:41→23:25)
[2021-04-08 22:50] LABS: ABG PH 7.52 (7.37-7.43)
[2021-04-08 22:52] LABS: ABG OXYGEN SATURATION 90 % (94-100); ABG PCO2 34 MMHG (35-45); ABG PO2 52 MMHG (79-93); ABG TCO2 28.8 MMOL/L (21.0-31.0); ALLENS TEST YES-POS
[2021-04-08 22:53] LABS: INSPIRED O2 ROOM AIR; PATIENT TEMP 37.1; VENTILATOR NO
[2021-04-08 23:01] LABS: HEMATOCRIT 46 % (40-54); MEAN CORPUSCULAR HEMOGLOBIN 36 PG (25-34); MEAN CORPUSCULAR HGB CONC 37 G/DL (32-36); MEAN CORPUSCULAR VOLUME 98 FL (80-99); PLATELET COUNT 263 10^3/uL (130-400); WHITE BLOOD COUNT 4.8 10^3/uL (4.3-11.0)
[2021-04-08 23:02] LABS: BASOPHILS % (AUTO) 0 % (0-10); EOSINOPHILS % (AUTO) 0 % (0-10); LYMPHOCYTES # (AUTO) 0.7 X 10^3 (1.0-4.0); LYMPHOCYTES % (AUTO) 16 % (12-44); MEAN PLATELET VOLUME 10.8 FL (7.4-10.4); MONOCYTES # (AUTO) 0.6 X 10^3 (0.0-1.0); MONOCYTES % (AUTO) 13 % (0-12); NEUTROPHILS # (AUTO) 3.4 X 10^3 (1.8-7.8); NEUTROPHILS % (AUTO) 71 % (42-75)
[2021-04-08 23:20] LABS: ALANINE AMINOTRANSFERASE 69 U/L (0-55); ALKALINE PHOSPHATASE 123 U/L (40-136); BILIRUBIN,TOTAL 1.1 MG/DL (0.1-1.0); BUN/CREATININE RATIO 11; CARBON DIOXIDE 26 MMOL/L (21-32); CHLORIDE 93 MMOL/L (98-107); CREATININE SERUM 0.73 MG/DL (0.60-1.30); GFR ESTIMATED > 60; GLUCOSE 89 MG/DL (70-105); MAGNESIUM 1.8 MG/DL (1.6-2.4); POTASSIUM 2.7 MMOL/L (3.6-5.0); SODIUM 136 MMOL/L (135-145); TOTAL PROTEIN 7.5 GM/DL (6.4-8.2)
[2021-04-08 23:21] LABS: ALBUMIN 3.8 GM/DL (3.2-4.5)
[2021-04-08 23:48] LABS: CLARITY,URINE CLOUDY; COLOR,URINE AMBER
[2021-04-08 23:49] LABS: BILIRUBIN,URINE 2+ (NEGATIVE); GLUCOSE, URINE (UA) NEGATIVE (NEGATIVE); KETONES,URINE 1+ (NEGATIVE); NITRITE,URINE NEGATIVE (NEGATIVE); PROTEIN,URINE 2+ (NEGATIVE)
[2021-04-08 23:50] LABS: BACTERIA,URINE NEG /HPF; LEUKOCYTE ESTERASE ,URINE NEGATIVE (NEGATIVE); SQUAMOUS EPITHELIAL CELL,UR RARE /HPF
--- NOTE | 2021-04-09 00:08 | ED General ---
General Chief Complaint: Respiratory Problems Stated Complaint: CHEST PAIN/LOW SAO2 Nursing Triage Note: PT TO ROOM FS05 VIA W/C WITH C/O SOA. PT STATES THAT HE TESTED COVID POS ON February. PT REPORTS THAT HIS O2 WAS IN THE 80S AT HOME AND THAT WHEN HE WALKS UP AND DOWN THE STAIRS BREATHING BECOMES MORE DIFFICULT. PT O2 IS 90-92% UPON ARRIVAL. PT REPORTS DIARRHEA, COUGH, HEADACHES, HOT FLASHES AND SORE THROAT. Source of Information: Patient Exam Limitations: No Limitations History of Present Illness Date Seen by Provider: Apr 09, 2021 Time Seen by Provider: 21:55 Initial Comments Patient is a 30-year-old male diagnosed with Covid on 03/23/2021 who was hospitalized on 04/02/21 and released on 04/04/21 for the same who presents with intermittent daily watery diarrhea for the past several days, dizziness and lightheadedness upon standing and shortness of breath with exertion. Patient states he has been self isolating in his bedroom upstairs and that he has had to walk down and up the stairs multiple times daily to use the bathroom. He states he is dizzy lightheaded and short of breath feels as though he is going to pass out with exertion and standing. He denies fever. He has an occasional dry cough. He denies fever chills nausea vomiting and sweats. Denies chest pain, abdominal pain. He denies leg pain or swelling. He reports tea colored urine. He denies leg pain and cramps. No other acute symptoms or complaints. Timing/Duration: Getting Worse Severity: Moderate Modifying Factors: improves with Movement Associated Systoms: Other Allergies and Home Medications Allergies Coded Allergies: methylprednisolone (Verified Allergy, Unknown, 04/02/21) Home Medications Acetaminophen 500 Mg Tablet, 1,000 MG PO Q8H PRN for PAIN-MILD (1-4), (Reported) Potassium Chloride 20 Meq Tab.er.prt, 40 MEQ PO DAILY@0600 Prescribed by: JAGJIT TROY on 04/04/21 1008 Thiamine HCl 50 Mg Tablet, 50 MG PO DAILY, (Reported) Patient Home Medication List Home Medication List Reviewed: Yes Review of Systems Review of Systems Constitutional: see HPI EENTM: see HPI Respiratory: see HPI Cardiovascular: see HPI Gastrointestinal: see HPI Genitourinary: see HPI Musculoskeletal: see HPI Skin: see HPI Psychiatric/Neurological: See HPI Hematologic/Lymphatic: See HPI Immunological/Allergic: no symptoms reported Past Xojqcih-Dhuwtp-Urjdkr Hx Patient Social History Tobacco Use?: Yes Smoking Status: Light Tobacco Smoker Substance use?: No Alcohol Use?: Yes Alcohol Frequency: Couple times a week Pt feels they are or have been: No Past Medical History Surgeries: No Respiratory: No Cardiac: No Neurological: No Genitourinary: No Gastrointestinal: Yes (Fatty Liver and elevated LFTs) Musculoskeletal: No Endocrine: No Cancer: No Psychosocial: No Integumentary: No Family Medical History No Pertinent Family Hx Physical Exam Vital Signs Vital Signs - First Documented 04/08/21 04/09/21 21:56 01:00 Temp 37.1 Pulse 98 Resp 18 B/P (MAP) 104/62 (76) Pulse Ox 95 O2 Delivery Room Air O2 Flow Rate 2.00 Capillary Refill : Greater Than 3 Seconds Height, Weight, BMI Height: '" Weight: lbs. oz. kg; 31.00 BMI Method: General Appearance: No Apparent Distress, WD/WN, Anxious Eyes: Bilateral Eye Normal Inspection, Bilateral Eye PERRL, Bilateral Eye EOMI, Bilateral Eye Abnormal EOM HEENT: PERRL/EOMI, Normal ENT Inspection, Pharynx Normal Neck: Full Range of Motion, Non Tender, Supple Respiratory: Chest Non Tender, Lungs Clear Cardiovascular: Regular Rate, Rhythm, Tachycardia Gastrointestinal: Normal Bowel Sounds, Non Tender, Soft Back: Normal Inspection, No CVA Tenderness Neurologic/Psychiatric: Alert, Oriented x3 Skin: Normal Color, Warm/Dry, Other Focused Exam Sepsis Stage: Ruled Out Lactate Level 04/08/21 22:15: Lactic Acid Level 1.49 Lactic Acid Level Laboratory Tests Test 04/08/21 22:15 Lactic Acid Level 1.49 MMOL/L (0.50-2.00) Progress/Results/Core Measures Suspected Sepsis SIRS Temperature: Pulse: 98 Respiratory Rate: 18 Laboratory Tests 04/08/21 22:15: White Blood Count 4.8 Blood Pressure 104 /62 Mean: 76 04/08/21 22:15: Lactic Acid Level 1.49 Laboratory Tests 04/08/21 22:15: Creatinine 0.73, Platelet Count 263, Total Bilirubin 1.1H Results/Orders Lab Results Laboratory Tests Test 04/08/21 22:15 04/08/21 22:27 04/08/21 23:17 Range/Units White Blood Count 4.8 4.3-11.0 10^3/uL Red Blood Count 4.67 4.35-5.85 10^6/uL Hemoglobin 17.0 13.3-17.7 G/DL Hematocrit 46 40-54 % Mean Corpuscular Volume 98 80-99 FL Mean Corpuscular Hemoglobin 36 H 25-34 PG Mean Corpuscular Hemoglobin Concent 37 H 32-36 G/DL Red Cell Distribution Width 13.1 10.0-14.5 % Platelet Count 263 130-400 10^3/uL Mean Platelet Volume 10.8 H 7.4-10.4 FL Immature Granulocyte % (Auto) 0 % Neutrophils (%) (Auto) 71 42-75 % Lymphocytes (%) (Auto) 16 12-44 % Monocytes (%) (Auto) 13 H 0-12 % Eosinophils (%) (Auto) 0 0-10 % Basophils (%) (Auto) 0 0-10 % Neutrophils # (Auto) 3.4 1.8-7.8 X 10^3 Lymphocytes # (Auto) 0.7 L 1.0-4.0 X 10^3 Monocytes # (Auto) 0.6 0.0-1.0 X 10^3 Eosinophils # (Auto) 0.0 0.0-0.3 10^3/uL Basophils # (Auto) 0.0 0.0-0.1 10^3/uL Immature Granulocyte # (Auto) 0.0 0.0-0.1 10^3/uL Sodium Level 136 135-145 MMOL/L Potassium Level 2.7 L 3.6-5.0 MMOL/L Chloride Level 93 L 98-107 MMOL/L Carbon Dioxide Level 26 21-32 MMOL/L Anion Gap 17 H 5-14 MMOL/L Blood Urea Nitrogen 8 7-18 MG/DL Creatinine 0.73 0.60-1.30 MG/DL Estimat Glomerular Filtration Rate > 60 BUN/Creatinine Ratio 11 Glucose Level 89 70-105 MG/DL Lactic Acid Level 1.49 0.50-2.00 MMOL/L Calcium Level 9.0 8.5-10.1 MG/DL Corrected Calcium 9.2 8.5-10.1 MG/DL Magnesium Level 1.8 1.6-2.4 MG/DL Total Bilirubin 1.1 H 0.1-1.0 MG/DL Aspartate Amino Transf (AST/SGOT) 59 H 5-34 U/L Alanine Aminotransferase (ALT/SGPT) 69 H 0-55 U/L Alkaline Phosphatase 123 40-136 U/L Total Protein 7.5 6.4-8.2 GM/DL Albumin 3.8 3.2-4.5 GM/DL Blood Gas Puncture Site LT. RADIAL Blood Gas Patient Temperature 37.1 Arterial Blood pH 7.52 H 7.37-7.43 Arterial Blood Partial Pressure CO2 34 L 35-45 MMHG Arterial Blood Partial Pressure O2 52 L 79-93 MMHG Arterial Blood HCO3 28 H 23-27 MMOL/L Arterial Blood Total CO2 28.8 21.0-31.0 MMOL/L Arterial Blood Oxygen Saturation 90 L 94-100 % Arterial Blood Base Excess 5.0 H -2.5-2.5 MMOL/L Stas Test YES-POS Blood Gas Ventilator Setting NO Blood Gas Inspired Oxygen ROOM AIR Urine Color LINNETTE H Urine Clarity CLOUDY Urine pH 6.0 5-9 Urine Specific [place] 1.025 H 1.016-1.022 Urine Protein 2+ H NEGATIVE Urine Glucose (UA) NEGATIVE NEGATIVE Urine Ketones 1+ H NEGATIVE Urine Nitrite NEGATIVE NEGATIVE Urine Bilirubin 2+ H NEGATIVE Urine Urobilinogen 2.0 < = 1.0 MG/DL Urine Leukocyte Esterase NEGATIVE NEGATIVE Urine RBC (Auto) 2+ H NEGATIVE Urine RBC 2-5 H /HPF Urine WBC 5-10 H /HPF Urine Squamous Epithelial Cells RARE /HPF Urine Crystals NONE /LPF Urine Bacteria NEG /HPF Urine Casts PRESENT /LPF Urine Hyaline Casts 10-25 H /LPF Urine Granular Casts /LPF Urine Coarse Granular Casts RARE H /LPF Urine White Blood Cell Casts 2-5 H /LPF Urine Mucus LARGE H /LPF Urine Culture Indicated NO My Orders Juan - STELLA CASTELLANOS DO Cbc With Automated Diff (04/08/21 22:04) Comprehensive Metabolic Panel (04/08/21 22:04) Blood Culture (04/08/21 22:04) Urinalysis (04/08/21 22:04) Urine Culture (04/08/21 22:04) Chest 1 View Ap/Pa Only (04/08/21 22:04) Ed Iv/Invasive Line Start (04/08/21 22:04) Lactic Acid Analyzer (04/08/21 22:04) Ns Iv 1000 Ml (Sodium Chloride 0.9%) (04/08/21 22:15) Magnesium (04/08/21 22:06) Arterial Blood Gas (04/08/21 22:37) Ct Angio Chest W (04/09/21 00:12) Iohexol Injection (Omnipaque 350 Mg/Ml 1 (04/09/21 00:30) Received Contrast (Hold Metformin- Contr (04/09/21 00:30) Ns (Ivpb) (Sodium Chloride 0.9% Ivpb Bag (04/09/21 00:30) Medications Given in ED Current Medications Medications Dose Ordered Sig/[place] Route Start Time Stop Time Status Last Admin Dose Admin Iohexol 150 ml ONCE ONCE IV 04/09/21 00:30 04/09/21 00:31 DC 04/09/21 00:27 125 ML Sodium Chloride 100 ml ONCE ONCE IV 04/09/21 00:30 04/09/21 00:31 DC 04/09/21 00:27 100 ML Vital Signs/I&O 04/08/21 04/09/21 21:56 01:00 Temp 37.1 Pulse 98 78 Resp 18 17 B/P (MAP) 104/62 (76) 101/60 Pulse Ox 95 O2 Delivery Room Air Nasal Cannula O2 Flow Rate 2.00 04/09/21 00:00 Intake Total 1000 ml Balance 1000 ml Capillary Refill : Greater Than 3 Seconds Blood Pressure Mean: 76 Departure Communication (Admissions) Chest x-ray: No discrete lobar infiltrate. Patient hypotensive and orthostatic upon standing. He is also hypoxic with minor exertion. Patient given 2 L of fluid and placed on nasal cannula. Symptoms currently improved. Electrolyte's are normal. Slight elevation in LFTs and increased in bilirubin. Patient's urine is tea colored with hyaline casts and bilirubin noted to be present. Patient accepted to [facility] by Dr. Witt. Courtesy bridge orders written. Impression Primary Impression: COVID-19 virus infection Additional Impressions: Acute respiratory failure with hypoxia Orthostatic hypotension Disposition: ADMITTED INPATIENT Condition: Stable Admissions Decision to Admit Reason: Admit from ER (General) Decision to Admit/Date: Apr 09, 2021 Transfer Transfer Reason: Patient preference Method of Transfer: EMS Departure-Patient Inst. Work/School Note: Work Release Form Date Seen in the Emergency Department: Apr 08, 2021 Return to Work: Apr 10, 2021 Other Restrictions Listed Below: NO RESTRICTIONS STELLA CASTELLANOS DO Apr 09, 2021 00:08
[2021-04-09] MEDS ORDERED: HOLD METFORMIN - RECEIVED CONTRAST 20 ML VIAL IV SCH (00:30)
[2021-04-09] MEDS ORDERED: IOHEXOL 350 MG/ML 150 ML (OMNIPAQUE 350) VIAL IV ONE (00:30)
[2021-04-09] MEDS ORDERED: NS 100 ML (IVPB) BAG IV ONE (00:30)
[2021-04-09 01:45] VITALS: BP 138/95
[2021-04-09] MEDS ORDERED: NS IV 1000 ML 1,000 ML ONE (02:06)
[2021-04-09] MEDS: NS IV 1000 ML 1,000 ML IV SCH ×2 (02:10→09:38)
[2021-04-09] MEDS ORDERED: ONDANSETRON 4 MG/2 ML (SDV) Z0FRAN IV PRN (02:45)
[2021-04-09] MEDS ORDERED: RT-ALBUTEROL INHALER HFA (VENTOLIN HFA) 18 GM IH PRN (02:45)
[2021-04-09 03:38] VITALS: BP 156/94
--- NOTE | 2021-04-09 05:54 | Diagnostic Imaging Report ---
INDICATION: Sepsis. COMPARISON: None. FINDINGS: Single view of the chest demonstrates clear lungs bilaterally. The heart is normal. There is no pneumothorax but osseous structures are normal. IMPRESSION: Negative chest. Dictated by: Dictated on workstation # [id number]
--- NOTE | 2021-04-09 05:55 | Diagnostic Imaging Report ---
PROCEDURE: CT angiography of the chest with contrast. TECHNIQUE: Multiple contiguous axial images were obtained through the chest after uneventful bolus administration of intravenous contrast. 3D reconstructed CTA MIP acquisitions were also performed. Auto Exposure Controls were utilized during the CT exam to meet ALARA standards for radiation dose reduction. INDICATION: Cough COMPARISON: None FINDINGS: The heart size is normal. The pulmonary arteries are poorly opacified due to timing of the contrast bolus. No obvious central pulmonary embolism seen. The aorta is normal. There is no lymphadenopathy. Patchy infiltrates are seen bilaterally compatible with pneumonia. There is no pneumothorax or effusion. Visualized upper abdominal solid organs and osseous structures are unremarkable. IMPRESSION: 1. Inadequate evaluation of the pulmonary arteries 2. Bilateral pulmonary infiltrates compatible with pneumonia Agree with preliminary report. Dictated by: Dictated on workstation # [id number]
[2021-04-09 06:10] LABS: BASOPHILS % (AUTO) 0 % (0-10); EOSINOPHILS % (AUTO) 1 % (0-10); HEMATOCRIT 42 % (40-54); HEMOGLOBIN 14.9 g/dL (13.3-17.7); LYMPHOCYTES # (AUTO) 0.6 10^3/uL (1.0-4.0); LYMPHOCYTES % (AUTO) 14 % (12-44); MEAN CORPUSCULAR HEMOGLOBIN 36 pg (25-34); MEAN CORPUSCULAR HGB CONC 36 g/dL (32-36); MEAN CORPUSCULAR VOLUME 100 fL (80-99); MONOCYTES # (AUTO) 0.5 10^3/uL (0.0-1.0); MONOCYTES % (AUTO) 11 % (0-12); NEUTROPHILS # (AUTO) 3.3 10^3/uL (1.8-7.8); NEUTROPHILS % (AUTO) 74 % (42-75); PLATELET COUNT 273 10^3/uL (130-400); WHITE BLOOD COUNT 4.4 10^3/uL (4.3-11.0)
[2021-04-09 06:23] LABS: ALBUMIN 3.2 GM/DL (3.2-4.5); CHLORIDE 103 MMOL/L (98-107); POTASSIUM 2.9 MMOL/L (3.6-5.0); SODIUM 140 MMOL/L (135-145)
[2021-04-09 06:24] LABS: CALCIUM 8.3 MG/DL (8.5-10.1)
[2021-04-09 06:26] LABS: GLUCOSE 78 MG/DL (70-105); TOTAL PROTEIN 6.2 GM/DL (6.4-8.2)
[2021-04-09 06:27] LABS: CARBON DIOXIDE 24 MMOL/L (21-32)
[2021-04-09 06:29] LABS: ALKALINE PHOSPHATASE 87 U/L (40-136); CREATININE SERUM 0.68 MG/DL (0.60-1.30); GFR ESTIMATED > 60
[2021-04-09 06:30] LABS: BUN/CREATININE RATIO 10
[2021-04-09 06:32] LABS: ALANINE AMINOTRANSFERASE 63 U/L (0-55)
[2021-04-09 08:00] VITALS: BP 127/79
[2021-04-09] MEDS: ACETAMINOPHEN 325 MG TABLET PO PRN ×2 (09:38→18:24)
[2021-04-09 12:00] VITALS: BP 128/81
[2021-04-09] MEDS ORDERED: POTA20TA15 PO (12:26)
[2021-04-09] MEDS ORDERED: dexAMETHasone 6 MG TAB (DECADRON) PO NR (13:30)
[2021-04-09] MEDS ORDERED: KCL 20 MEQ TAB (K-DUR) PO NR (13:30)
[2021-04-09] MEDS ORDERED: DOXYCYCLINE 100 MG (VIBRAMYCIN) TABLET PO NR (13:30)
[2021-04-09 15:47] VITALS: BP 176/104
[2021-04-09] MEDS ORDERED: hydrALAZINE (APESOLINE) 20 MG/ML VIAL IV PRN (16:00)
--- NOTE | 2021-04-09 16:12 | History & Physical-Hospitalist ---
History of Present Illness HPI/Chief Complaint Bernardo Garner is a 30 year old male who presented with lightheadedness. He has been getting dizzy upon standing. He has had dyspnea on exertion. He has been having watery diarrhea. He was recently admitted with COVID pneumonia. He was diagnosed on 03/23. He was in the hospital from 04/02-04/04. He went home and has been feeling ill. He reports fevers. He reports that he was just started on Doxycycline due to a possible tick borne illness. Source: patient Exam Limitations: no limitations Date Seen 04/09/21 Time Seen by a Provider: 10:40 Attending Physician Crystal Earl MD PCP No,Local Physician Referring Physician Date of Admission Apr 09, 2021 at 01:40 Home Medications & Allergies Home Medications Reviewed patient Home Medication Reconciliation performed by pharmacy medication reconciliations animal care technician and/or nursing. Patients Allergies have been reviewed. Allergies Allergies Coded Allergies methylprednisolone (Verified Allergy, Unknown, 04/02/21) Past Enlfuqy-Fkrplf-Lffced Hx Patient Social History Tobacco Use?: No Smoking Status: Former Smoker Substance use?: No Alcohol Use?: Yes Alcohol Frequency: Couple times a week Additional Alcohol Comments: no longer drinks alcohol Pt feels they are or have been: No Current Status Advance Directives: No Communicates: Verbally Primary Language: Divehi Preferred Spoken Language: Divehi Is interpretation needed?: No Sensory deficits: Other Implanted or Applied Medical D: None Past Medical History EtOH use Family Medical History No Pertinent Family Hx Review of Systems Constitutional: fever, malaise EENTM: no symptoms reported Respiratory: dyspnea on exertion Cardiovascular: no symptoms reported Gastrointestinal: diarrhea Genitourinary: no symptoms reported Musculoskeletal: no symptoms reported Skin: no symptoms reported Psychiatric/Neurological: No Symptoms Reported Physical Exam Physical Exam Vital Signs Vital Signs - First Documented 04/08/21 04/09/21 21:56 01:00 Temp 37.1 Pulse 98 Resp 18 B/P (MAP) 104/62 (76) Pulse Ox 95 O2 Delivery Room Air O2 Flow Rate 2.00 Capillary Refill : Greater Than 3 Seconds Height, Weight, BMI Height: '" Weight: lbs. oz. kg; 30.26 BMI Method: General Appearance: No Apparent Distress, Obese HEENT: PERRL/EOMI, Pharynx Normal Neck: Normal Inspection, Supple Respiratory: Lungs Clear, Normal Breath Sounds, No Respiratory Distress Cardiovascular: Regular Rate, Rhythm, No Edema, No Murmur Gastrointestinal: Normal Bowel Sounds, Non Tender, Soft Extremity: Normal Inspection, Non Tender, No Pedal Edema Neurologic/Psychiatric: Alert, Oriented x3, No Motor/Sensory Deficits, Normal Mood/Affect Skin: Normal Color, Warm/Dry Results Results/Procedures Labs Laboratory Tests 04/08/21 22:15 04/09/21 05:55 Patient resulted labs reviewed. Imaging: Reviewed Imaging Report Assessment/Plan Admission Diagnosis Acute respiratory failure due to COVID-19 Admission Status: Inpatient Order (span 2 midnights) Reason for Inpatient Admission: Requiring oxygen Assessment and Plan Acute respiratory failure due to COVID-19 Decadron Supplemental oxygen as needed Elevated LFTs RUQ ultrasound negative Check hepatitis panel [place] antibody positive Started on Doxycycline outpatient, continue HTN Hydralazine as needed Begin Lisinopril if persists Obesity Clinically significant, no acute management needs DVT propylaxis: Ambulation Diagnosis/Problems Diagnosis/Problems (1) COVID-19 virus infection Status: Acute (2) Acute respiratory failure with hypoxia Status: Acute (3) Elevated LFTs Status: Acute CRYSTAL EARL MD Apr 09, 2021 16:12
[2021-04-09 19:13] VITALS: BP 135/81
[2021-04-09] MEDS: DOXYCYCLINE 100 MG (VIBRAMYCIN) TABLET PO SCH (20:12)
[2021-04-10] VITALS (7 sets, daily range): BP systolic 136–156; BP diastolic 85–102
[2021-04-10 07:13] LABS: CHLORIDE 103 MMOL/L (98-107); POTASSIUM 3.4 MMOL/L (3.6-5.0); SODIUM 141 MMOL/L (135-145)
[2021-04-10 07:14] LABS: CALCIUM 9.3 MG/DL (8.5-10.1)
[2021-04-10 07:15] LABS: GLUCOSE 106 MG/DL (70-105)
[2021-04-10 07:16] LABS: CARBON DIOXIDE 24 MMOL/L (21-32)
[2021-04-10 07:18] LABS: CREATININE SERUM 0.65 MG/DL (0.60-1.30); GFR ESTIMATED > 60
[2021-04-10 07:19] LABS: BUN/CREATININE RATIO 11
[2021-04-10 07:21] LABS: MAGNESIUM 1.7 MG/DL (1.6-2.4)
[2021-04-10] MEDS: dexAMETHasone 6 MG TAB (DECADRON) PO SCH (08:33)
[2021-04-10] MEDS: DOXYCYCLINE 100 MG (VIBRAMYCIN) TABLET PO SCH ×2 (08:33→16:59)
[2021-04-10] MEDS: lisINopril 40 MG (PRINIVIL) TABLET PO SCH (08:33)
[2021-04-10] MEDS: ACETAMINOPHEN 325 MG TABLET PO PRN (08:42)
--- NOTE | 2021-04-10 15:42 | Progress Note - Hospitalist ---
Subjective HPI/CC On Admission Date Seen by Provider: Apr 10, 2021 Time Seen by Provider: 11:10 Bernardo Garner is a 30 year old male who presented with lightheadedness. He has been getting dizzy upon standing. He has had dyspnea on exertion. He has been having watery diarrhea. He was recently admitted with COVID pneumonia. He was diagnosed on 03/23. He was in the hospital from 04/02-04/04. He went home and has been feeling ill. He reports fevers. He reports that he was just started on Doxycycline due to a possible tick borne illness. Subjective/Events-last exam He is feeling better today. He is not feeling short of breath. He still has a cough. He is not getting short of breath with exertion. He still has chest tightness. Focused Exam Lactate Level 04/08/21 22:15: Lactic Acid Level 1.49 Objective Exam Vital Signs Vital Signs Date Time Temp Pulse Resp B/P (MAP) Pulse Ox O2 Delivery O2 Flow Rate FiO2 04/10/21 12:00 35.8 89 20 145/95 (112) 94 Nasal Cannula 1.00 Capillary Refill : Greater Than 3 Seconds General Appearance: No Apparent Distress, Obese Respiratory: Lungs Clear, Normal Breath Sounds, No Respiratory Distress Cardiovascular: Regular Rate, Rhythm, No Edema, No Murmur Gastrointestinal: Normal Bowel Sounds, Non Tender, Soft Extremity: Normal Inspection, Non Tender, No Pedal Edema Neurologic/Psychiatric: Alert, Oriented x3, No Motor/Sensory Deficits, Normal Mood/Affect Skin: Normal Color, Warm/Dry Results/Procedures Lab Laboratory Tests 04/10/21 06:30 Patient resulted labs reviewed. Imaging: Reviewed Imaging Report Assessment/Plan Assessment and Plan Assess & Plan/Chief Complaint Acute respiratory failure due to COVID-19 Decadron Supplemental oxygen as needed Elevated LFTs RUQ ultrasound negative Hep panel negative Repeat hepatic panel tomorrow [place] antibody positive Continue Doxycycline HTN Hydralazine as needed Begin Lisinopril Obesity Clinically significant, no acute management needs DVT propylaxis: Ambulation Diagnosis/Problems Diagnosis/Problems (1) COVID-19 virus infection Status: Acute (2) Acute respiratory failure with hypoxia Status: Acute (3) Elevated LFTs Status: Acute JOHN EARL MD Apr 10, 2021 15:42
[2021-04-10] MEDS ORDERED: MELATONIN 3 MG TABLET PO PRN (15:45)
[2021-04-10] MEDS ORDERED: polyethylene glycoL POWDER 17 GM (MIRALAX) PACK PO PRN (15:45)
[2021-04-10] MEDS ORDERED: diphenhydrAMINE 25 MG TAB (BENADRYL) PO PRN (15:45)
[2021-04-10] MEDS ORDERED: MILK OF MAGNESIA 400 MG/5 ML 30 ML UDC PO PRN (15:45)
[2021-04-10] MEDS ORDERED: ANTACID SUSP 30 ML UDC (MYLANTA) PO PRN (15:45)
[2021-04-10] MEDS ORDERED: ONDANSETRON 4 MG/2 ML (SDV) Z0FRAN IV PRN (15:45)
[2021-04-10] MEDS ORDERED: ONDANSETRON 4 MG (ZOFRAN) ORAL DISSOLVE TAB PO PRN (15:45)
[2021-04-11 03:35] VITALS: BP 151/96
[2021-04-11 06:15] LABS: ALBUMIN 3.3 GM/DL (3.2-4.5); CHLORIDE 102 MMOL/L (98-107); SODIUM 141 MMOL/L (135-145)
[2021-04-11 06:16] LABS: CALCIUM 9.3 MG/DL (8.5-10.1)
[2021-04-11 06:17] LABS: GLUCOSE 101 MG/DL (70-105); TOTAL PROTEIN 6.4 GM/DL (6.4-8.2)
[2021-04-11 06:19] LABS: CARBON DIOXIDE 24 MMOL/L (21-32)
[2021-04-11 06:21] LABS: ALKALINE PHOSPHATASE 93 U/L (40-136); CREATININE SERUM 0.69 MG/DL (0.60-1.30); GFR ESTIMATED > 60
[2021-04-11 06:22] LABS: BUN/CREATININE RATIO 14
[2021-04-11 06:24] LABS: ALANINE AMINOTRANSFERASE 80 U/L (0-55); MAGNESIUM 1.8 MG/DL (1.6-2.4)
[2021-04-11] MEDS: dexAMETHasone 6 MG TAB (DECADRON) PO SCH (06:41)
[2021-04-11] MEDS: DOXYCYCLINE 100 MG (VIBRAMYCIN) TABLET PO SCH (06:42)
[2021-04-11 08:00] VITALS: BP 153/99
[2021-04-11] MEDS ORDERED: KCL 20 MEQ TAB (K-DUR) PO SCH (08:00)
[2021-04-11] MEDS ORDERED: MAGNESIUM 1 GM/100 ML IVPB 100 ML IV SCH (08:00)
[2021-04-11] MEDS ORDERED: NS IV 500 ML 500 ML ONE (08:56)
[2021-04-11] MEDS: POTASSIUM CL 10MEQ/50ML IVPB 50 ML IV SCH ×6 (09:00→12:59)
[2021-04-11] MEDS: lisINopril 40 MG (PRINIVIL) TABLET PO SCH (09:51)
[2021-04-11] MEDS: ACETAMINOPHEN 325 MG TABLET PO PRN (10:09)
[2021-04-11 12:00] VITALS: BP 138/92
[2021-04-11] MEDS ORDERED: DOXY100T2 PO (12:26)
[2021-04-11] MEDS ORDERED: LISI40TA9 PO (12:26)
[2021-04-11 14:42] VITALS: BP 138/92
== END 2021-04-11 14:49 | disposition home or self-care (01) | DRG 177 ==
LOC: EDUNIT# 21:51 → ER FS 21:55 → 4TH 04-09 01:40
PROVIDERS: ADMIT Internal Medicine; ATTEND Internal Medicine
DX: U07.1 COVID-19 (principal); J96.01 Acute respiratory failure with hypoxia; A21.9 Tularemia, unspecified; I95.1 Orthostatic hypotension; R19.7 Diarrhea, unspecified; R79.89 Other specified abnormal findings of blood chemistry; I10 Essential (primary) hypertension; E66.9 Obesity, unspecified; Z68.30 Body mass index [BMI] 30.0-30.9, adult; Z87.891 Personal history of nicotine dependence
CPT/HCPCS: 36415; 71045; 71275; 80048; 80053; 80074; 81000; 82805; 83605; 83735; 85025; 87040; 87088; 94760; 94761